=== PATIENT | female | born 1990 | race Caucasian/White ===

== ENCOUNTER 2016-09-18 16:32 | Emergency (ER) | payer BC ==
[2016-09-18 16:43] VITALS: BP 127/89; PULSE 99; RESP 18; TEMP 98.6
[2016-09-18] MEDS ORDERED: DIPH,PERTUS(ACELL)TETVAC-LF 0.5 ML VIAL IM ONE (16:51)
[2016-09-18] MEDS ORDERED: TOPICAL SKIN ADHESIVE 1 EACH AMP TOPICAL ONE (16:51)
--- NOTE | 2016-09-18 16:59 | ED ---
Skin/Abscess/FB HPI - General Chief complaint: Skin/Abscess/Foreign Body Stated complaint: left thumb lac - [facility] Time Seen by Provider: 09/18/16 16:43 Source: patient Mode of arrival: ambulatory Limitations: no limitations - History of Present Illness Initial comments: 25-year-old female presents complaining of left thumb laceration that occurred at work just prior to arrival. Patient states she was cutting raw chicken when the knife slipped and cut her left thumb. Patient states she tried to run it under cold water but she felt like she was going to pass out so she stopped. Patient unaware when her tetanus was last given. No recorded fevers. Patient states it bled a lot. No numbness or tingling no other pain in that extremity no other concerns today. Patient was at work. MD complaint: laceration (Left thumb) Location: L hand (Thumb) - Related Data Previous Rx's Medication Instructions Recorded Cephalexin [Keflex] 500 mg PO Q8HR #30 cap 09/18/16 Allergies Allergy/AdvReac Type Severity Reaction Status Date / Time No Known Allergies Allergy Verified 09/18/16 16:42 Review of Systems ROS Statement: Those systems with pertinent positive or pertinent negative responses have been documented in the HPI. ROS Other: All systems not noted in ROS Statement are negative. Skin: Reports: other (Laceration to left thumb no numbness tingling bleeding controlled.) Past Medical History Past Medical History: No Reported History History of Any Multi-Drug Resistant Organisms: None Reported Past Surgical History: No Surgical Hx Reported Past Psychological History: No Psychological Hx Reported Smoking Status: Current every day smoker Past Alcohol Use History: None Reported Past Drug Use History: None Reported General Exam Limitations: no limitations General appearance: alert, in no apparent distress Neurological exam: Present: alert, oriented X3, CN II-XII intact Psychiatric exam: Present: normal affect, normal mood Skin exam: Present: warm, dry, normal color. Absent: intact (Some small superficial laceration to the tip of the left thumb nontender bleeding controlled), rash Course Vital Signs 09/18/16 16:40 Temperature 98.6 F Pulse Rate 99 Respiratory 18 Rate Blood Pressure 127/89 O2 Sat by Pulse 99 Oximetry Procedures - Procedures Initial comment: Patient left thumb is prepped and draped appropriately with normal saline Betadine. Patient's thumb was dried and Dermabond was applied dressing was applied patient tolerated well no complications Medical Decision Making - Medical Decision Making Patient given information on Dermabond. Patient to keep area covered while at work. Patient to keep area clean. Patient to not disturb the Dermabond leave it intact. Patient to follow-up with [facility] if not improving. Disposition Clinical Impression: Laceration Disposition: HOME SELF-CARE Condition: Good Instructions: Laceration (ED), Acute Wound Care (ED), Skin Adhesive Care (ED) Prescriptions: Cephalexin [Keflex] 500 mg PO Q8HR #30 cap Referrals: Ba Lucia DO [Primary Care Provider] - 1-2 days Time of Disposition: 17:00
== END 2016-09-18 17:37 | disposition home or self-care (01) ==
LOC: EC 16:32
DX: S61.012A Laceration without foreign body of left thumb without damage to nail, initial encounter (principal); Z23 Encounter for immunization; W26.0XXA Contact with knife, initial encounter; Y99.0 Civilian activity done for income or pay; Y92.69 Other specified industrial and construction area as the place of occurrence of the external cause; F17.200 Nicotine dependence, unspecified, uncomplicated
CPT/HCPCS: 12001; 90471; 90715; 99282

== ENCOUNTER 2016-11-16 20:18 | Emergency (ER) | payer BC ==
[2016-11-16 20:28] VITALS: RESP 18
[2016-11-16] MEDS ORDERED: SODIUM CHLORIDE 0.9% 1,000 ML IV STA (20:49)
[2016-11-16] MEDS ORDERED: diphenhydrAMINE 50 MG/ML 1 ML VIAL IVP STA (20:49)
[2016-11-16] MEDS ORDERED: METOCLOPRAMIDE 5 MG/ML 2 ML VIAL IVP STA (20:50)
--- NOTE | 2016-11-16 21:29 | ED ---
General Adult HPI - General Chief complaint: Recheck/Abnormal Lab/Rx Stated complaint: Headache Time Seen by Provider: 11/16/16 20:39 Source: patient, RN notes reviewed Mode of arrival: ambulatory Limitations: no limitations - History of Present Illness Initial comments: 25-year-old female presents in the emergency Department chief complaint of headache. Patient complains of headache today by lateral aspect of the hand. Patient states that wraps around to the jaw. Patient states if she bends forward she notices increased headache when she coughs or sneezes. Patient states that she doesn't normally have headaches. She recently started Synthroid about a week and a half ago. Patient stated that she was concerned because she just continues to have this headache so she thought that she should be seen. Patient denies any nausea vomiting but states she does have photophobia. Patient was concerned due to her continued headache so she thought that she should be seen.Patient denies any recent fever, chills, shortness of breath, chest pain, back pain, abdominal pain, nausea vomiting, numbness or tingling, dysuria or hematuria, constipation or diarrhea, visual changes, or any other current symptoms. - Related Data Home Medications Medication Instructions Recorded Confirmed Levothyroxine Sodium [Synthroid] 50 mcg PO DAILY 11/16/16 11/16/16 Previous Rx's Medication Instructions Recorded Amoxicillin/Potassium Clav 1 tab PO Q12HR #20 tab 11/16/16 [Augmentin 875-125 Tablet] Allergies Allergy/AdvReac Type Severity Reaction Status Date / Time No Known Allergies Allergy Verified 11/16/16 20:40 Review of Systems ROS Statement: Those systems with pertinent positive or pertinent negative responses have been documented in the HPI. ROS Other: All systems not noted in ROS Statement are negative. Past Medical History Past Medical History: No Reported History History of Any Multi-Drug Resistant Organisms: None Reported Past Surgical History: No Surgical Hx Reported Past Psychological History: No Psychological Hx Reported Smoking Status: Current every day smoker Past Alcohol Use History: None Reported Past Drug Use History: None Reported General Exam - General Exam Comments Initial Comments: General: The patient is awake and alert, in no distress, and does not appear acutely ill. Eye: Pupils are equal, round and reactive to light, extra-ocular movements are intact; there is normal conjunctiva bilaterally. No signs of icterus. Ears, nose, mouth and throat: There are moist mucous membranes and no oral lesions. Neck: The neck is supple, there is no tenderness. Cardiovascular: There is a regular rate and rhythm. No murmur, rub or gallop is appreciated. Respiratory: Lungs are clear to auscultation, respirations are non-labored, breath sounds are equal. No wheezes, stridor, rales, or rhonchi. Gastrointestinal: Soft, non-distended, non-tender abdomen without masses or organomegaly noted. There is no rebound or guarding present. No CVA tenderness. Bowel sounds are unremarkable. Back: There is no tenderness to palpation in the midline. There is no obvious deformity. No rashes noted. Musculoskeletal: Normal ROM, no tenderness, There is no pedal edema. There is no calf tenderness or swelling. Sensation intact. Pulses equal bilaterally 2+. Neurological: CN II-XII intact, There are no obvious motor or sensory deficits. Coordination appears grossly intact. Speech is normal. Skin: Skin is warm and dry and no rashes or lesions are noted. Psychiatric: Cooperative, appropriate mood & affect, normal judgment. Limitations: no limitations Course Vital Signs 11/16/16 20:24 Temperature 98.0 F Pulse Rate 94 Respiratory 18 Rate Blood Pressure 136/81 O2 Sat by Pulse 95 Oximetry Medical Decision Making - Medical Decision Making 25-year-old female presents emergency Department chief complaint of headache. At this time patient's CAT scan is reviewed that is showing suspicion for sinus disease. At this time patient is having uses he does headache. We will get the patient on antibiotics. We did discuss follow-up and return parameters all patient's questions. She stated that she understood and she is very plan. She will be discharged. - Radiology Data Radiology results: report reviewed, image reviewed Disposition Clinical Impression: Acute sinusitis Disposition: HOME SELF-CARE Condition: Stable Instructions: Sinusitis (ED) Additional Instructions: Please use medication as discussed. Please follow up with family doctor if symptoms have not improved over the next two days. Please return to the emergency room if your symptoms increase or worsen or for any other concerns. Prescriptions: Amoxicillin/Potassium Clav [Augmentin 875-125 Tablet] 1 tab PO Q12HR #20 tab Referrals: Ba Lucia DO [Primary Care Provider] - 1-2 days Time of Disposition: 22:40
--- NOTE | 2016-11-16 22:37 | CT ---
EXAM: CT Head Without Intravenous Contrast CLINICAL HISTORY: Reason: Pain TECHNIQUE: Axial computed tomography images of the head/brain without intravenous contrast. DLP is 1088 mGy-cm. This CT exam was performed using one or more of the following dose reduction techniques: automated exposure control, adjustment of the mA and/or kV according to patient size, and/or use of iterative reconstruction technique. COMPARISON: None. FINDINGS: Brain: Unremarkable. No hemorrhage. No significant white matter disease. No edema. Ventricles: Unremarkable. No ventriculomegaly. Bones/joints: Unremarkable. No acute fracture. Soft tissues: Unremarkable. Sinuses: Air-fluid level is seen within the posterior right ethmoid air cells and in the left sphenoid sinus with complete opacification of the right sphenoid sinus, likely representing sinus disease. Mastoid air cells: Unremarkable as visualized. No mastoid effusion. IMPRESSION: 1. No evidence of acute transcortical infarct or acute intracranial hemorrhage. 2. Air-fluid level within the posterior right ethmoid air cells and in the left sphenoid sinus with complete opacification of the right sphenoid sinus, likely representing sinus disease.
[2016-11-16] MEDS ORDERED: KETOROLAC 30 MG/ML 1 ML VIAL IVP STA (22:40)
[2016-11-16 23:00] VITALS: BP 123/69; PULSE 80; TEMP 97.7
== END 2016-11-16 23:02 | disposition home or self-care (01) ==
LOC: EC 20:18
DX: J01.90 Acute sinusitis, unspecified (principal); F17.200 Nicotine dependence, unspecified, uncomplicated; Z79.899 Other long term (current) drug therapy
CPT/HCPCS: 70450; 99284; 96374; 96375 ×2; 96361; J1200; J2765; J1885

== ENCOUNTER → 2017-09-12 | Outpatient (CLI) | payer BC | END | disposition home or self-care (01) | LOC: LABMAIN 21:41 | PROVIDERS: ATTEND Internal Medicine Endocrinology, Diabetes & Metabolism | DX: E03.8 Other specified hypothyroidism (principal); Z53.9 Procedure and treatment not carried out, unspecified reason ==

== ENCOUNTER → 2017-11-01 | Outpatient (CLI) | payer BC | END | disposition home or self-care (01) | LOC: LABWHC1 07:05 | PROVIDERS: ATTEND Internal Medicine Endocrinology, Diabetes & Metabolism | DX: E03.8 Other specified hypothyroidism (principal) | CPT/HCPCS: 36415; 84443 ==

== ENCOUNTER → 2017-11-30 | Outpatient (CLI) | payer BC | END | disposition home or self-care (01) | LOC: LABWHC1 12:26 | PROVIDERS: ATTEND Internal Medicine Endocrinology, Diabetes & Metabolism | DX: E03.8 Other specified hypothyroidism (principal) | CPT/HCPCS: 36415; 84443; 86376 ==

== ENCOUNTER → 2018-02-07 | Outpatient (CLI) | payer BC | END | disposition home or self-care (01) | LOC: LABWHC1 08:46 | PROVIDERS: ATTEND Internal Medicine Endocrinology, Diabetes & Metabolism | DX: E03.8 Other specified hypothyroidism (principal) | CPT/HCPCS: 36415; 84443 ==

== ENCOUNTER → 2018-04-07 | Outpatient (CLI) | payer BC ==
[2018-04-07 11:06] LABS: HGB 12.4 gm/dL (11.4-16.0); MCH 31.3 pg (25.0-35.0); MCHC 33.4 g/dL (31.0-37.0); MCV 93.6 fL (80.0-100.0); Mean Platelet Volume 7.8; Platelet Count 235 k/uL (150-450); RBC 3.96 m/uL (3.80-5.40); RDW 13.6 % (11.5-15.5); WBC 14.6 k/uL (3.8-10.6)
== END | disposition home or self-care (01) ==
LOC: LABWHC1 09:18
PROVIDERS: ATTEND Obstetrics & Gynecology
DX: O99.282 Endocrine, nutritional and metabolic diseases complicating pregnancy, second trimester (principal); E03.9 Hypothyroidism, unspecified; Z3A.00 Weeks of gestation of pregnancy not specified
CPT/HCPCS: 36415; 82950; 84443; 85027

== ENCOUNTER → 2018-04-12 | Outpatient (CLI) | payer BC ==
--- NOTE | 2018-04-12 13:46 | US ---
EXAMINATION TYPE: US thyroid st tissue head/neck DATE OF EXAM: 04/12/2018 COMPARISON: NONE CLINICAL HISTORY: 27-year-old female E03.8 Hypothyroidism. TECHNIQUE: Multiple sonographic images of the thyroid gland are obtained. FINDINGS: GLAND SIZE: Right Lobe: 4..4 x 1.3 x 1.3 cm Overall Parenchyma: homogenous Left Lobe: 3.4 x 1.0 x 1.3 cm Overall Parenchyma: homogeneous Isthmus Thickness: 0.4 cm NODULES RIGHT: # of nodules measured on right: 0 LEFT: # of nodules measured on left: 0 ISTHMUS: # of nodules measured in the isthmus: 0 Bilateral neck scanned, no evidence of lymphadenopathy. IMPRESSION: Normal-sized thyroid gland without discrete nodule.
== END ==
LOC: RADUSWWP 10:55
PROVIDERS: ATTEND Internal Medicine Endocrinology, Diabetes & Metabolism
DX: E03.8 Other specified hypothyroidism (principal)
CPT/HCPCS: 76536

== ENCOUNTER → 2018-05-16 | Outpatient (CLI) | payer BC | END | disposition home or self-care (01) | LOC: LABWHC1 09:21 | PROVIDERS: ATTEND Internal Medicine Endocrinology, Diabetes & Metabolism | DX: E03.8 Other specified hypothyroidism (principal) | CPT/HCPCS: 36415; 84443 ==